=== PATIENT | female | born 2005 | race Caucasian/White ===

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

== ENCOUNTER → 2024-01-25 | Outpatient (CLI) | payer MEDICAID, SELFPAY | END | disposition home or self-care (01) | LOC: LABSPEC 15:12 | PROVIDERS: PCP Internal Medicine; Referring Provider Otolaryngology Otolaryngology/Facial Plastic Surgery; Visit Provider Otolaryngology Otolaryngology/Facial Plastic Surgery | DX: J02.9 Acute pharyngitis, unspecified (principal) | CPT/HCPCS: 87070 ==

== ENCOUNTER 2024-07-30 20:44 | Emergency (ER) | payer MEDICAID, SELFPAY ==
[2024-07-30 20:45] VITALS: BP 134/98; PULSE 82; RESP 16; TEMP 36.3; O2SAT 96; BMI 20.2
--- NOTE | 2024-07-30 21:11 | US_ITS ---
PROCEDURE: TRANSVAGINAL NON- REASON FOR EXAM: Heavy menses. COMPARISON: None. FINDINGS Anteverted uterus which measures 5.5 x 3.6 x 2.6 cm. No uterine fibroids or masses. Endometrial thickness measures 2 mm. Trace free fluid within the endometrium. Right ovary measures 1.5 x 0.9 x 0.8 cm. Preserved vascular flow. Left ovary measures 2.9 x 2.1 x 2.0 cm. There is a 1.9 cm dominant follicle. Preserved vascular flow. US/Transvaginal Non- IMPRESSION: No acute abnormalities. Trace free fluid within the endometrium. Reading Location: [id number]
[2024-07-30 21:44] LABS: Anion Gap 8 (5-15); BUN 18 mg/dL (7-18); BUN/Creat Ratio 26.7 RATIO (10-20); Calcium,Total 9.4 mg/dL (8.5-10.1); Chloride 108 mmol/L (98-107); Creatinine, Serum 0.68 mg/dL (0.55-1.02); EST Glomerular Filtration Rate 118 mL/min (>60); Est Glom Filt Rate - Afr Amer 143 mL/min (>60); Estimated Creatinine Clearance 99.58 ml/min; Glucose 80 mg/dL (74-106); Potassium 3.6 mmol/L (3.5-5.1); Sodium Level 140 mmol/L (136-145)
--- NOTE | 2024-07-30 21:57 | ED.VIS.FEGU ---
HPI HPI - Female History of Present Illness Chief Complaint: Vag Bleeding Narrative Narrative: Chief complaint and HPI: Vaginal bleeding. 19-year-old female presents for evaluation of vaginal bleeding. Patient states at baseline she has irregular menstrual cycles. She states she fluctuates in the amount of days that she bleeds as well. Patient has a Nexplanon which was placed 2 years ago to help with her irregular menstrual cycles but this has not helped. Patient denies sexual activity. She states she has never had intercourse. Patient states she started her menstrual cycle on 07/18 and has continued to bleed. She states that she is changing her pad frequently. She states that she became lightheaded but has a history of syncope which is not very abnormal for her. Patient states she is scheduled to see a new MULTIFOCAL BUTTON INSPECTOR in a few days. Patient denies any chest pain, shortness of breath, nausea, vomiting. Endorses some pelvic cramping. Denies any vaginal discharge. Patient states she has never had a pelvic exam. Review of systems: See HPI Medications: As listed on the chart Allergies: As listed on the chart PFSH: Per chart Vital signs: As listed on the chart. Reviewed. Physical exam: Gen: A&O x3, NAD Head: Normocephalic, atraumatic Eyes: No sclera icterus, conjunctiva clear ENT: Moist mucous membranes Neck: Trachea midline, No JVD CV: RRR, no murmurs, no peripheral edema Resp: Lungs CTA BL, no w/r/c GI: Abd soft, non-distended, non-tender, no r/r/g : No CVA tenderness Pelvic: Normal external genitalia. No lesions, masses, or rashes appreciated. Active vaginal bleeding. No vaginal discharge. Cervix is non-friable. No cervical motion tenderness appreciated. No sign of PID on examination. Musc: Full ROM, no deformity Skin: Warm, dry Neuro: Alert, oriented, grossly intact, sensation intact Psych: Cooperative, appropriate mood and affect [facility] Medical History 2nd degree AV block (~12/2022) Anxiety Contraceptive management Migraines Home Medications ?Medication ?Instructions ?Recorded ?Last Taken ?Type cetirizine 10 mg tablet 10 mg PO BID 01/31/23 Unknown History fluticasone propionate 50 2 spray intranasal Q12H 01/31/23 Unknown History mcg/actuation nasal spray,suspension ketotifen fumarate 0.025 % (0.035 1 drp ophthalmic (eye) Q12H 01/31/23 Unknown History %) eye drops meloxicam 7.5 mg tablet 7.5 mg PO DAILY 01/31/23 Unknown History ondansetron 4 mg disintegrating 4 mg PO Q6H 01/31/23 Unknown History tablet pantoprazole 40 mg tablet,delayed 40 mg PO DAILY 01/31/23 Unknown History release tizanidine 2 mg tablet 2 mg PO Q8H 01/31/23 Unknown History etonogestrel 68 mg subdermal 1 implant subdermal ONCE 03/31/23 Unknown History implant (Nexplanon) cholecalciferol (vitamin D3) 50 50 mcg PO DAILY 08/05/23 Unknown History mcg (2,000 unit) capsule (Vitamin D3) duloxetine 60 mg capsule,delayed 60 mg PO DAILY 08/05/23 Unknown History release famotidine 40 mg tablet 40 mg PO DAILY 08/05/23 Unknown History lansoprazole 30 mg capsule,delayed 30 mg PO DAILY 08/05/23 Unknown History release sucralfate 1 gram tablet (Carafate) 1 g PO BID #30 tabs 08/05/23 Unknown Rx Allergy/AdvReac Type Severity Reaction Status Date / Time No Known Allergies Allergy Verified 07/30/24 20:45 Family History Unknown Hypertension Migraines Surgical History Hx of appendectomy Social History Smoking Status: Never smoker alcohol intake: never substance use type: does not use caffeine: No what type of physical activity do you participate in: walking seatbelt use: always additional social history: [employer]- 11th grade EXAM Physical Exam Const Vital Signs: 07/30/24 20:45 07/30/24 22:45 Temperature 97.3 F L Temperature Source Temporal Pulse Rate 82 84 Respiratory Rate 16 14 Blood Pressure 134/98 H 101/73 Blood Pressure Mean 110 82 Pulse Ox 96 98 Oxygen Delivery Method Room Air Room Air MDM MDM MDM Narrative Medical decision making narrative: 19-year-old female presents for evaluation of vaginal bleeding. Vaginal bleeding has been ongoing since 07/18/2024. At baseline patient has metrorrhagia. Patient denies being sexually active. Differential diagnosis includes but is not limited to dysfunctional uterine bleeding, metrorrhagia, , uterine pathology, anemia, electrolyte abnormality. Pelvic exam unremarkable except for vaginal bleeding. Laboratory workup ordered including transvaginal ultrasound. BNP relatively unremarkable. CBC without leukocytosis or anemia. No thrombocytopenia. Transvaginal ultrasound shows trace free fluid within the endometrium. Consistent with her vaginal bleeding. Otherwise no acute abnormality. UA positive for blood which is consistent with patient's vaginal bleeding. No UTI. Patient does have ketones. Consistent with mild dehydration. On chart review, patient had large ketones in her last urine. Patient was educated on all her results. She was told to follow-up with her MULTIFOCAL BUTTON INSPECTOR which she has an appointment for as well as her PCP. Return precautions explained. She was educated drink plenty of liquids and fluids over the next several days given her mild dehydration. She confirmed understanding of the plan. Impression: 1. Dysfunctional uterine bleeding 2. Metrorrhagia Lab Data Labs: Laboratory Results - last 24 hr 07/30/24 07/30/24 07/30/24 21:19 21:19 22:45 WBC Cancelled 8.3 Corrected WBC Cancelled RBC Cancelled 4.23 Hgb Cancelled 12.5 Hct Cancelled 36.3 L MCV Cancelled 85.8 MCH Cancelled 29.6 MCHC Cancelled 34.4 RDW Std Deviation Cancelled 37.7 RDW Coeff of Chace Cancelled 12.2 Plt Count Cancelled 320 MPV Cancelled 9.5 Immature Gran % (Auto) Cancelled 0.400 Neut % (Auto) Cancelled 48.8 Lymph % (Auto) Cancelled 43.3 H [place] % (Auto) Cancelled 5.8 Eos % (Auto) Cancelled 1.1 Baso % (Auto) Cancelled 0.6 Absolute Neuts (auto) Cancelled 4.0 Absolute Lymphs (auto) Cancelled 3.58 Total Counted Cancelled Neutrophils % (Manual) Cancelled Band Neutrophils % Cancelled Lymphocytes % (Manual) Cancelled Monocytes % (Manual) Cancelled Eosinophils % (Manual) Cancelled Basophils % (Manual) Cancelled Metamyelocytes % Cancelled Myelocytes % Cancelled Promyelocytes % Cancelled Blast Cells % Cancelled Plasma Cell % (Manual) Cancelled Other Cells % Cancelled Nucleated RBC % Cancelled 0 Nucleated RBCs/100 WBC Cancelled Differential Comment Cancelled Diff Path Review Cancelled Hypersegmented Neuts Cancelled Atypical Lymphocytes Cancelled Reactive Lymphocytes Cancelled Smudge Cells Cancelled Toxic Granulation Cancelled Toxic Vacuolation Cancelled Dohle Bodies Cancelled Alisa Rods Cancelled Platelet Estimate Cancelled Plt Morphology Comment Cancelled RBC Morphology Cancelled Cancelled Polychromasia Cancelled Hypochromasia Cancelled Basophilic Stippling Cancelled Anisocytosis Cancelled Microcytosis Cancelled Macrocytosis Cancelled Spherocytes Cancelled Sickle Cells Cancelled Target Cells Cancelled Tear Drop Cells Cancelled Ovalocytes Cancelled Stomatocytes Cancelled Fermin-Pinch Bodies Cancelled Allie Cells Cancelled Bite Cells Cancelled Crenated Cell Cancelled Acanthocytes (Spur) Cancelled Rouleaux Cancelled Schistocytes Cancelled Sodium 140 Potassium 3.6 Chloride 108 H Carbon Dioxide 24.0 Anion Gap 8 BUN 18 Creatinine 0.68 Estim Creat Clear Calc 99.58 Est GFR (MDRD) Af Amer 143 Est GFR (MDRD) Non-Af 118 BUN/Creatinine Ratio 26.7 H Glucose 80 Calcium 9.4 Urine Color Urine Clarity Urine pH Ur Specific [place] Urine Protein Urine Glucose (UA) Urine Ketones Urine Occult Blood Urine Nitrite Urine Bilirubin Urine Urobilinogen Ur Leukocyte Esterase Urine RBC Urine WBC Ur Squamous Epith Cells Urine Bacteria Urine Mucus Urine Test 07/30/24 22:51 WBC Corrected WBC RBC Hgb Hct MCV MCH MCHC RDW Std Deviation RDW Coeff of Chace Plt Count MPV Immature Gran % (Auto) Neut % (Auto) Lymph % (Auto) [place] % (Auto) Eos % (Auto) Baso % (Auto) Absolute Neuts (auto) Absolute Lymphs (auto) Total Counted Neutrophils % (Manual) Band Neutrophils % Lymphocytes % (Manual) Monocytes % (Manual) Eosinophils % (Manual) Basophils % (Manual) Metamyelocytes % Myelocytes % Promyelocytes % Blast Cells % Plasma Cell % (Manual) Other Cells % Nucleated RBC % Nucleated RBCs/100 WBC Differential Comment Diff Path Review Hypersegmented Neuts Atypical Lymphocytes Reactive Lymphocytes Smudge Cells Toxic Granulation Toxic Vacuolation Dohle Bodies Alisa Rods Platelet Estimate Plt Morphology Comment RBC Morphology Polychromasia Hypochromasia Basophilic Stippling Anisocytosis Microcytosis Macrocytosis Spherocytes Sickle Cells Target Cells Tear Drop Cells Ovalocytes Stomatocytes Fermin-Pinch Bodies [place]averly Cells Bite Cells Crenated Cell Acanthocytes (Spur) Rouleaux Schistocytes Sodium Potassium Chloride Carbon Dioxide Anion Gap BUN Creatinine Estim Creat Clear Calc Est GFR (MDRD) Af Amer Est GFR (MDRD) Non-Af BUN/Creatinine Ratio Glucose Calcium Urine Color [place] Urine Clarity Cloudy Urine pH 6.0 Ur Specific [place] 1.020 Urine Protein 30 H Urine Glucose (UA) Normal Urine Ketones 150 A* Urine Occult Blood 250 H Urine Nitrite Negative Urine Bilirubin Negative Urine Urobilinogen 1 H Ur Leukocyte Esterase 25 H Urine RBC > 100 SEEN Urine WBC 0-5 SEEN Ur Squamous Epith Cells 0-5 SEEN Urine Bacteria RARE Urine Mucus 1+ Urine Test Negative Radiography Diagnostic Testing: Clinical Impression(s) from Imaging Studies Transvaginal US 07/30/24 21:11 IMPRESSION: No acute abnormalities. Trace free fluid within the endometrium. Reading Location: [facility] Discharge Plan Triage Chief Complaint: Vag Bleeding ED Provider: [place] Combs Dx/Rx/DC Orders Clinical Impression: Metrorrhagia, Dysfunctional uterine bleeding Instructions: ED Dysfunctional Uterine Bleeding, ED Heavy Menstrual Bleeding Prescriptions: No Action Nexplanon 68 mg implant 1 implant subdermal ONCE Rx Instructions: as a single dose meloxicam 7.5 mg tablet 7.5 mg PO DAILY Patient Comments: TAKE 1 TO 2 TABLETS BY MOUTH ONCE DAILY WITH FOOD pantoprazole 40 mg tablet,delayed release (DR/EC) 40 mg PO DAILY Patient Comments: take 1 tablet by mouth 30 MINUTES before breakfast TAKE ON EMPTY STOMACH ondansetron 4 mg tablet,disintegrating 4 mg PO Q6H Patient Comments: take 1 tablet by mouth every 6 hours if needed for nausea and vomiting cetirizine 10 mg tablet 10 mg PO BID Patient Comments: take 1 tablet by mouth twice a day if needed ketotifen fumarate 0.025 % (0.035 %) drops 1 drp ophthalmic (eye) Q12H Patient Comments: use 1 drop into both eyes twice a day fluticasone propionate 50 mcg/actuation spray,suspension 2 spray INTRANASAL Q12H Patient Comments: use 1 to 2 sprays into each nostril once daily tizanidine 2 mg tablet 2 mg PO Q8H Patient Comments: take 1 tablet by mouth every 8 hours if needed famotidine 40 mg tablet 40 mg PO DAILY Patient Comments: take 1 tablet by mouth once daily lansoprazole 30 mg capsule,delayed release(DR/EC) 30 mg PO DAILY Patient Comments: take 1 capsule by mouth once daily *TAKE 30-60 MINUTES BEFORE BREAKFAST ON AN EMPTY STOMACH* duloxetine 60 mg capsule,delayed release(DR/EC) 60 mg PO DAILY Patient Comments: take 1 capsule by mouth once daily cholecalciferol (vitamin D3) [Vitamin D3] 50 mcg (2,000 unit) capsule 50 mcg PO DAILY Patient Comments: take 1 capsule by mouth once daily sucralfate [Carafate] 1 gram tablet 1 g PO BID Qty: 30 0RF Primary Care Provider: Erica Garza Referrals: Erica Garza MD [Primary Care Provider] - 3-5 Days Activity Restrictions/Additional Instructions: Follow-up with your MULTIFOCAL BUTTON INSPECTOR. Keep the appointment that you currently have. Follow-up with primary care physician. Return back to the ED if symptoms change or worsen. You are mildly dehydrated therefore you need to drink plenty of fluids and liquids over the next several days. Print Language: Surinamese Disposition Disposition: Home, Self Care
[2024-07-30 22:45] VITALS: BP 101/73; PULSE 84; RESP 14; O2SAT 98
[2024-07-30 22:51] LABS: Absolute Lymphocyte Count 3.58 X10^3/uL (0.83-4.51); Basophil# 0.05 X10^3/uL; Basophil% 0.6 % (0-1); Eosinophil# 0.09 X10^3/uL; Eosinophils% 1.1 % (0-5); Hematocrit 36.3 % (37-47); Hemoglobin 12.5 g/dL (12.0-15.0); Lymphocyte # 3.58 X10^3/ul (0.83-4.51); Lymphocyte % 43.3 % (19-41); Mean Corp Hgb Conc 34.4 g/dL (32-36); Mean Corpuscular Hgb 29.6 pg (27.0-32.0); Mean Corpuscular Volume 85.8 fL (81-99); Mean Platelet Vol. 9.5 fl (6.2-12.0); Monocyte# 0.48 X10^3/uL; Monocyte% 5.8 % (0-10); NRBC Flagged by Analyzer 0 % (0-5); Neutrophil # 4.03 X10^3/uL (2.7-7.7); Neutrophil % 48.8 % (47-70); Platelet Count 320 K/mm3 (150-450); RBC Distribution Width CV 12.2 % (11.6-14.6); RBC Distribution Width SD 37.7 fl (35.1-43.9); Red Blood Count 4.23 M/mm3 (4.2-5.4); White Blood Count 8.3 K/mm3 (4.4-11.0)
[2024-07-30 23:03] LABS: Color, Urine Amber (Yellow); Glucose, Dipstick Normal (Normal); Leukocyte Esterase-Dipstick 25 /ul (Negative); Nitrite-Dipstick Negative (Negative); Occult Blood-Urine 250 /ul (Negative); Protein-Dipstick 30 mg/dl (Negative); Urine Bilirubin Dipstick Negative (Negative); Urine Clarity Cloudy (Clear); Urine Urobilinogen 1 mg/dl (Normal)
[2024-07-30 23:12] LABS: Ketone-Dipstick 150 mg/dl (Negative)
--- NOTE | 2024-07-30 23:12 | ED.RN ---
Critical urine ketones of 150. Dr. Montejo notified.
[2024-07-30 23:14] LABS: Bacteria RARE /hpf (None Seen); Internal QC Validated? YES +Cl - CLEAR BKGD; Mucous, Urine 1+ /hpf (<or=2+); Pregnancy, Urine Negative Negative; Red Blood Cells-Urine > 100 SEEN /hpf (0-5); Squamous Epithelial Cells - UA 0-5 SEEN /hpf (5-10); White Blood Cells 0-5 SEEN /hpf (0-5)
[2024-07-30 23:32] VITALS: BP 101/73; PULSE 84; RESP 14; TEMP 36.3; O2SAT 98
== END 2024-07-30 23:33 | disposition home or self-care (01) ==
PROVIDERS: Emergency Provider Surgery; PCP Internal Medicine; Visit Provider Surgery
DX: N92.1 Excessive and frequent menstruation with irregular cycle (principal); N93.8 Other specified abnormal uterine and vaginal bleeding; Z30.46 Encounter for surveillance of implantable subdermal contraceptive
CPT/HCPCS: 76830; 80048; 81001; 81025; 85025; 99283; A4216

== ENCOUNTER 2024-10-23 18:33 | Emergency (ER) | payer MEDICAID, SELFPAY ==
[2024-10-23 18:33] VITALS: BP 116/97; PULSE 94; RESP 15; TEMP 36.4; O2SAT 100; BMI 20.6
--- NOTE | 2024-10-23 18:55 | RAD_ITS ---
EXAM: Left wrist CLINICAL HISTORY: Wrist pain TECHNIQUE: Three views FINDINGS: No acute fracture or dislocation. Normal alignment of the wrist. No soft tissue swelling. RAD/Wrist min 3 Views IMPRESSION: No acute fracture or dislocation. Reading Location: [id number]
--- NOTE | 2024-10-23 19:23 | EDS_ITS ---
HPI History of Present Illness Chief Complaint: Upper Extremity Injury Narrative Narrative: Patient is a 19-year-old female past medical history of anxiety, migraines who presents to the emergency department with concern of left wrist pain. Patient states that 2 days ago she fell from a chair that was hanging from the ceiling when she tried to catch herself she states that she had pain. Patient states that she tried to take ibuprofen prior to coming in and did not appear to seem to help with her pain. Patient denies any other pain or injuries. [facility] Medical History Contraceptive management 2nd degree AV block (~12/2022) Migraines Anxiety Home Medications ?Medication ?Instructions ?Recorded ?Last Taken ?Type cetirizine 10 mg tablet 10 mg PO BID PRN allergy sym ptoms 01/31/23 Unknown History fluticasone propionate 50 2 spray intranasal Q12H 02/1510/23/24 History mcg/actuation nasal spray,suspension ketotifen fumarate 0.025 % (0.035 1 drp ophthalmic (ey e) Q12H 01/31/23 10/23/24 History %) eye drops ondansetron 4 mg disintegrating 4 mg PO Q6H PRN nausea and vomiting 01/31/23 Unknown History tablet tizanidine 2 mg tablet 2 mg PO Q8H PRN muscle spast icity 01/31/23 Unknown History etonogestrel 68 mg subdermal 1 implant subdermal ONCE 03/31/23 Unknown History implant (Nexplanon) famotidine 40 mg tablet 40 mg PO DAILY 08/05/2309/25 History sucralfate 1 gram tablet (Carafate) 1 g PO BID #30 tab s 08/05/23 10/22/24 Rx Allergy/AdvReac Type Severity Reaction Status Date / Time No Known Allergies Allergy Verified 10/23/24 18:33 Family History Unknown Hypertension Migraines Surgical History Hx of appendectomy Social History Smoking Status: Never smoker alcohol intake: never substance use type: does not use caffeine: No what type of physical activity do you participate in: walking seatbelt use: always additional social history: [employer]- 11th grade ROS ROS ED ROS Narrative Constitutional: Denies fever, chills, headaches, lightheadedness, dizziness Neurological: Denies numbness, weakness, tingling Musculoskeletal: Complains of left wrist pain as noted above Skin: Denies rashes or lesions EXAM Physical Exam Narrative Exam Narrative: General: Patient lying in bed rest comfortably did not appear to be in acute distress Head: Atraumatic, normocephalic Eyes: PERRL bilateral, EOMI bilateral, no conjunctival injection noted Neck: Soft, supple, trachea midline Cardiovascular: Regular in rhythm Musculoskeletal: Patient has tenderness palpation over the left distal radius. All of the bony prominences palpated joints taken to full range of motion no pain elicited Extremities: Radial pulses +2/4 in the bilateral extremities, no pedal edema on exam Neurological: Patient follow commands that she was at [facility] the year is 2024. Sensation grossly intact in the median ulnar radial nerve distribution bilaterally Skin: Warm, dry, intact no rashes or lesions noted Const Vital Signs: 10/23/24 18:33 Temperature 97.5 F L Temperature Source Temporal Pulse Rate 94 Respiratory Rate 15 Blood Pressure 116/97 H Blood Pressure Mean 103 Pulse Ox 100 Oxygen Delivery Method Room Air MDM MDM MDM Narrative Medical decision making narrative: Patient is a 19-year-old female who presented to the emergency department chief complaint of left wrist pain. This injury occurred 2 days ago. On the differential diagnosis includes but not limited to musculoskeletal strain, d istal radius fracture, ulnar fracture. Once workup is obtained reviewed she will be reevaluated. Patient be given a gram of Tylenol Patient's x-ray of her wrist reviewed by myself and by radiology showed no acute fracture dislocation. Reviewed the results with the patient she would like to go home this point time. Patient will be given a removable wrist splint for comfort. She was advised to rotate Tylenol and ibuprofen [id number] as well as ice elevate. She is encouraged return with worsening symptoms any concerns otherwise she is to follow-up with a physician in outpatient setting. She requested a work note which was provided to her. All question concerns answered she was discharged home in stable condition. Discharge Plan Triage Chief Complaint: Upper Extremity Injury ED Provider: Aryan Amador Dx/Rx/DC Orders Clinical Impression: Left wrist pain Prescriptions: No Action Nexplanon 68 mg implant 1 implant subdermal ONCE Rx Instructions: as a single dose ondansetron 4 mg tablet,disintegrating 4 mg PO Q6H PRN (Reason: nausea and vomiting) cetirizine 10 mg tablet 10 mg PO BID PRN (Reason: allergy symptoms) ketotifen fumarate 0.025 % (0.035 %) drops 1 drp ophthalmic (eye) Q12H fluticasone propionate 50 mcg/actuation spray,suspension 2 spray INTRANASAL Q12H tizanidine 2 mg tablet 2 mg PO Q8H PRN (Reason: muscle spasticity) famotidine 40 mg tablet 40 mg PO DAILY sucralfate [Carafate] 1 gram tablet 1 g PO BID Qty: 30 0RF Patient Comments: PT STATES SHE TAKES ONCE DAILY Stand Alone Forms: ED Work / School Excuse Primary Care Provider: Erica Garza Referrals: Erica Garza MD [Primary Care Provider] - Activity Restrictions/Additional Instructions: Ice, elevate, wear removable wrist splint as needed for comfort. Return with worsening symptoms any concerns. Your x-ray did not show any broken bones. Ice, elevate, rotate Tylenol and ibuprofen [id number] when you do this he can take something every 3 hours. Max dose of Tylenol is 4000 mg max dose of ibuprofen is 3200 mg in 24 hours. Follow-up with your doctor. Print Language: Citizen Of [place] Disposition Disposition: Home, Self Care
[2024-10-23] MEDS: Acetaminophen 500 MG Tablet 1000 MG PO (19:41)
[2024-10-23 20:05] VITALS: BP 120/67; PULSE 67; RESP 16; TEMP 36.6; O2SAT 99
== END 2024-10-23 20:06 | disposition home or self-care (01) ==
PROVIDERS: Emergency Provider Emergency Medicine; PCP Internal Medicine; Visit Provider Emergency Medicine
DX: M25.532 Pain in left wrist (principal); F41.9 Anxiety disorder, unspecified; W07.XXXA Fall from chair, initial encounter; Z79.899 Other long term (current) drug therapy
CPT/HCPCS: 73110; 99282